=== PATIENT | female | born 1975 | race African-American/Black ===

== ENCOUNTER → 2016-09-24 | Outpatient (CLI) | payer OTHER ==
--- NOTE | 2016-09-24 12:15 | MM ---
Reason for exam: follow-up at short interval from prior study. Last mammogram was performed 6 months ago. History: Benign US biopsy breast VAD LT of the left breast, March 26, 2016. Physical Findings: Nurse Summary: 1.5cm nodule in the left breast at 9 o'clock (nurse mm). MG 3D Diag Mammo W/Cad OSCAR Bilateral CC and MLO view(s) were taken. Prior study comparison: March 26, 2016, left breast MG diagnostic mammo LT wo CAD. March 03, 2016, bilateral MG 3d diag mammo w/cad OSCAR. There are scattered fibroglandular densities. Finding: There are typically benign round calcifications in both breasts. Previous mammotome biopsy in the left breast at clip. There is a chronic nodularity in the left breast. These results were verbally communicated with the patient and result sheet given to the patient on 09/24/16. ASSESSMENT: Benign, BI-RAD 2 RECOMMENDATION: Routine screening mammogram of both breasts in 1 year.
--- NOTE | 2016-09-24 12:17 | USB ---
Reason for exam: follow-up at short interval from prior study. History: Benign US biopsy breast VAD LT of the left breast, March 26, 2016. US Breast LT Left breast ultrasound including all four quadrants, the retroareolar region and axilla demonstrates a 10 x 10 x 5mm oval, solid lesion at clip at 2 o'clock, biopsy proven fibroadenoma and a 25 x 6 x 38mm irregular, hypoechoic lesion with minimal vascularity at BB at 8 o'clock outside of breast, within skin, consider dermatic lesion. These results were verbally communicated with the patient and result sheet given to the patient on 09/24/16. ASSESSMENT: Benign, BI-RAD 2 RECOMMENDATION: Routine screening mammogram of both breasts in 1 year.
== END | disposition home or self-care (01) ==
LOC: RADMAMWWP 09:35
PROVIDERS: ATTEND Internal Medicine
DX: R92.8 Other abnormal and inconclusive findings on diagnostic imaging of breast (principal)
CPT/HCPCS: 76641; G0204; G0279

== ENCOUNTER → 2016-12-03 | Outpatient (CLI) | payer OTHER ==
--- NOTE | 2016-12-03 13:02 | XR ---
EXAMINATION TYPE: XR cervical spine comp DATE OF EXAM: 12/03/2016 12:18 PM COMPARISON: 03/21/2015 HISTORY: Neck pain TECHNIQUE: Four views are submitted. FINDINGS: The odontoid is intact. There are no compression deformities. The prevertebral soft tissue structur es are within normal limits. Hypertrophic and degenerative change at C5-C6. IMPRESSION: 1. Degenerative disc disease with most marked changes at C5-C6. Findings appear stable. Consider MRI cervical spine..
== END ==
LOC: RADXRMAIN 11:57
PROVIDERS: ATTEND Internal Medicine
DX: M50.322 Other cervical disc degeneration at C5-C6 level (principal)
CPT/HCPCS: 72050